=== PATIENT | male | born 1990 | race Caucasian/White ===

== ENCOUNTER 2017-10-02 05:01 | Day surgery (SDC) | payer BC ==
[2017-10-01 10:22] VITALS: BMI 29.5
[~2017-10-02 05:01] MED LIST: ceFAZolin SODIUM 1 GM VIAL IVPB ONE
[2017-10-02] MEDS ORDERED: DEXAMETHASONE SOD PHOSPHATE/PF 10 MG/ML SDV ONE (07:35)
[2017-10-02] MEDS ORDERED: BUPIVACAINE HCL/PF 0.5% (5MG/ML) 10 ML VIAL ONE ×2 (07:35→08:33)
[2017-10-02] MEDS ORDERED: ePHEDrine SULFATE 50 MG/1 ML AMPULE ONE (07:36)
[2017-10-02] MEDS ORDERED: PROPOFOL 20 ML ONE ×5 (07:37)
[2017-10-02] MEDS ORDERED: MIDAZOLAM HCL 2 MG/2 ML SINGLE DOSE VIAL ONE ×3 (07:37)
[2017-10-02] MEDS ORDERED: SUCCINYLCHOLINE CHLORIDE 200 MG/10 ML VIAL ONE (07:37)
[2017-10-02] MEDS ORDERED: SODIUM CHLORIDE 0.9% P/F 10 ML VIAL IJ ONE (07:38)
[2017-10-02] MEDS ORDERED: oxyCODONE HCL 5 MG TABLET PO PRN ×2 (07:50)
[2017-10-02] MEDS ORDERED: ONDANSETRON 4 MG/2 ML VIAL IVPUSH PRN (07:50)
[2017-10-02] MEDS ORDERED: LACTATED RINGERS SOLUTION 1,000 ML IV SCH (08:00)
--- NOTE | 2017-10-02 09:01 | HP ---
[facility] - Chief Complaint Chief Complaint: left ankle pain History of Present Illness: left achilles tendon rupture History Source: Patient Limitations to Obtaining History: No Limitations - Past Medical History Allergies/Adverse Reactions: Allergies Allergy/AdvReac Type Severity Reaction Status Date / Time No Known Drug Allergies Allergy Verified 10/02/17 08:00 - Current Medications Current Medications: Home Medications Medication Instructions Recorded NK [No Known Home Medication] 10/01/17 Satellite Physical Exam - Physical Examination Vital Signs: Vital Signs Period Temp Pulse Resp BP Sys/Kat Pulse Ox Last 24 Hr 98.4 F-98.4 F 65-65 20-20 119-119/70-70 98 General Appearance: Well Nourished ENT: Clear Lung: Clear to auscultation Heart: Regular rate & rhythm Breasts: Soft Abdomen: Soft Extremities: No edema Satellite Impression/Plan - Impression/Plan Impression: left achilles tendon rupture Operative Procedure: left achilles tendon repair Date to be Performed: 10/02/17
[2017-10-02] MEDS ORDERED: ceFAZolin SODIUM 1 GM VIAL ONE (09:13)
[2017-10-02] MEDS ORDERED: ceFAZolin SODIUM 1 GM VIAL IVPB ONE (09:14)
[2017-10-02] MEDS ORDERED: KETAMINE HCL 200 MG/20 ML VIAL ONE (09:15)
--- NOTE | 2017-10-02 10:33 | OP ---
Operative Note - Note: Operative Date: 10/02/17 ([facility]) Pre-Operative Diagnosis: left chronic achilles tendon rupture Operation: left achilles tendon repair, debridement Post-Operative Diagnosis: Same as Pre-op Surgeon: Nazario Campos Crown Perforator Operator: Reinaldo Morrow Anesthesiologist/SHEAR TENDER: Rojas Ramos Anesthesia: Spinal, Local Estimated Blood Loss (mls): 5 (tourniquet) Operative Report Dictated: Yes
--- NOTE | 2017-10-02 11:12 | OP ---
DATE OF OPERATION: 10/02/2017 PREOPERATIVE DIAGNOSIS: Left Achilles tendon rupture, subacute. POSTOPERATIVE DIAGNOSIS: Left Achilles tendon rupture, subacute. PROCEDURE: Open left Achilles tendon repair. SURGEON: Coral Boston MD RN LPN CNA: MEGHAN Araya ANESTHESIOLOGIST: Rojas Ramos CRNA SPECIMEN: Inflammatory tissue, left Achilles tendon. DRAINS: None. COMPLICATIONS: None. FLUID REPLACEMENT: Plasmalyte 1000 mL. BLOOD LOSS: None. BLOOD GIVEN: None. This patient is a 27-year-old male with a preoperative diagnosis of a subacute left Achilles tendon rupture. He believes it happened approximately 2 months ago while playing basketball. We have tried to treat it nonoperatively. After failure of nonoperative treatment and preoperative discussions, we have elected to undergo an open left Achilles tendon repair after understanding the potential risks, complications, alternatives, benefits of surgery versus nonsurgical treatment. The patient was brought to the operating room. Peripheral IV placed. IV sedation given. Two grams of IV Ancef were given. MAC anesthesia was induced. He was placed into the prone position. A tourniquet was applied to the left upper thigh. The left lower extremity was prepped and draped in sterile fashion, elevated, exsanguinated with an Esmarch bandage and tourniquet inflated to 275 mmHg. A curvilinear, lazy-S incision was marked out and made over the distal left Achilles tendon. Subcutaneous hemostasis achieved with the Bovie cautery. Dissection done down to the Achilles sheath. There was no acute inflammatory response or hematoma. It was obviously a subacute/chronic injury. Next, I used a fresh number-15 scalpel blade to make a longitudinal slit within the Achilles tendon sheath. There was a lot of scar tissue, inflammatory tissue. Tissue planes were difficult to assess. Then, using a fresh number-15 scalpel blade and Metzenbaum scissors, I very carefully dissected the sheath off the outer portion of the Achilles tendon and removed a moderate amount of inflammatory tissue. This exposed the Achilles tendon fibers. I then used the Locke elevator to free it distally and proximally. Everything was scarred down with scar tissue adhesions within the sheath. I then able to mobilize both sides much better and appreciate a higher concentration of inflammatory tissue in the watershed area, approximately 5 cm proximal to its distal calcaneal insertion. I continued to debride the area of inflammatory tissue. Then, I put in 1 FiberWire suture in the distal stump. I could see that the Achilles was mildly redundant, and then, I cut through the inflammatory tissue with a fresh number-15 scalpel blade. I held both ends, pulled them together. I could see that there was about 0.5 cm of overlap. So, about 0.4 cm of tissue was removed and passed off the field as specimen. It was clearly chronic inflammatory tissue. Cutting this out did expose better Achilles tendon fibers. I then put in a total of 4 FiberWire, up-and-down locking stitches, and I was able to pull quite hard. There was good fixation. Clearly, it was tendon fibers versus inflammatory tissue. Then, with the foot in about 30 degrees of plantar flexion, I tied the 8 tails of the FiberWire together. I then tested the repair. It was quite good. I was able to get the ankle up to about 15 degrees short of neutral. Next, I supplemented the repair with multiple circumferential number 1 Ti-Cron figure-of-8 stitches. Again, it all came together quite nicely. The area was irrigated and washed out. I loosely reapproximated the Achilles tendon sheath. I used 2-0 Vicryl in the deep dermal layer, and final skin reapproximation was done with a row of dom. The area was then washed and dried, covered with Xeroform gauze, 4 x 4 gauze, Webril, and a 6-inch Ortho-Glass posterior splint was applied and wrapped with 2 Mikie bandages. Total operative time was 65 minutes. There were no complications during the case. The patient tolerated the procedure quite well and was brought to the ambulatory recovery room in stable condition. CORAL BOSTON M.D. [id number]
[2017-10-02 14:53] VITALS: BP 127/75; PULSE 84; TEMP 97.8
--- NOTE | 2017-10-03 14:57 | PATH ---
Surgical Pathology Report Patient Name: SHIRA GREGORIO Med. Rec. #: [id number] /Age/Gender: 1990 (Age: 27) / M Account: [id number] Location: [facility] SURGICAL Taken: 10/02/2017 Received: 10/02/2017 Reported: 10/03/2017 Physicians: Nazario Campos M.D. Specimen(s) Received DEBRIDEMENT TISSUE LEFT ACHILLES TENDON Clinical History Left Achilles tendon tear Final Diagnosis ACHILLES TENDON, LEFT, DEBRIDEMENT: BENIGN DENSE FIBROCONNECTIVE AND ADIPOSE TISSUE. Electronically Signed Morenita Short M.D. Gross Description Received in formalin labeled "debrided tissue left Achilles," is a 5.5 x 4.6 x 0.8 cm aggregate of donnelly fibrous and soft tissue fragments. Pharmacy Account Director sections are submitted in one cassette. DL/10/02/2017 saudi/10/02/2017
== END 2017-10-02 16:00 | disposition home or self-care (01) ==
LOC: JASU-SURG 05:01
PROVIDERS: ATTEND Orthopaedic Surgery
PROC: 0LQP0ZZ Repair Left Lower Leg Tendon, Open Approach (ICD-10-PCS; principal; 2017-10-02 09:00)
DX: S86.012A Strain of left Achilles tendon, initial encounter (principal); X58.XXXA Exposure to other specified factors, initial encounter; Y93.9 Activity, unspecified; Y92.9 Unspecified place or not applicable; Y99.9 Unspecified external cause status
CPT/HCPCS: 88304-TC; 94760; 97116-GP